=== PATIENT | female | born 1960 | race Asian ===

== ENCOUNTER 2020-03-06 05:36 | Inpatient (IN) | payer BC ==
[2020-03-06] VITALS (59 sets, daily range): BP systolic 90–156; BP diastolic 42–86
[~2020-03-06] VITALS: Ht 160 cm; Wt 55.0 kg
[~2020-03-06 05:36] MED LIST: CYCL10TA7 PO; GABA-290 PO; LOSA50TA41 PO
[2020-03-06] MEDS: DEXT 5%/LACTATED RINGERS 1,000 ML IV SCH ×3 (06:00→18:14)
[2020-03-06] MEDS ORDERED: THROMBIN (BOVINE) 5000 UNITS/VIAL TOP ONE ×2 (06:15→06:16)
[2020-03-06] MEDS ORDERED: LACTATED RINGERS 1,000 ML IV SCH (06:15)
[2020-03-06] MEDS ORDERED: LIDOCAINE HCL/EPINEPHRINE 1%-EPI 1:100,000 20 ML VIAL ONE (06:15)
[2020-03-06] MEDS ORDERED: BACITRACIN 50,000 UNITS/VIAL ONE (06:16)
[2020-03-06] MEDS ORDERED: FENTANYL CITRATE/PF 50MCG/ML 2ML VIAL ONE ×2 (07:07→07:40)
[2020-03-06] MEDS ORDERED: ROCURONIUM BROMIDE 10MG/ML VIAL 5ML IV ONE ×2 (07:07→07:38)
[2020-03-06] MEDS ORDERED: PROPOFOL 200MG/20ML VIAL IV ONE ×2 (07:08→08:10)
[2020-03-06] MEDS ORDERED: NEOSTIGMINE METHYLSULFATE 1MG/ML 10 ML VIAL ONE (07:08)
[2020-03-06] MEDS ORDERED: EPHEDRINE SULFATE 50MG/ML VIAL ONE (07:08)
[2020-03-06] MEDS ORDERED: SODIUM CHLORIDE 0.9% 10ML VIAL ONE (07:08)
[2020-03-06] MEDS ORDERED: MIDAZOLAM HCL 2 MG/2 ML VIAL ONE (07:08)
[2020-03-06] MEDS ORDERED: PHENYLEPHRINE HCL 10 MG/ML 1ML (IV VIAL) IV ONE (07:08)
[2020-03-06] MEDS ORDERED: ONDANSETRON HCL 4MG/2ML INJ ONE (07:08)
[2020-03-06] MEDS ORDERED: CEFAZOLIN SODIUM 1000MG/VIAL ONE (07:08)
[2020-03-06] MEDS ORDERED: GLYCOPYRROLATE 0.2 MG/ML 2ML VIAL ONE (07:08)
[2020-03-06] MEDS ORDERED: METOCLOPRAMIDE HCL 10MG/2ML VIAL ONE (07:08)
[2020-03-06] MEDS ORDERED: SUCCINYLCHOLINE CHLORIDE 200MG/10ML IV ONE (07:08)
[2020-03-06] MEDS ORDERED: DEXAMETHASONE 4MG/ML 1ML VIAL ONE (07:08)
[2020-03-06] MEDS ORDERED: NICARDIPINE 100 MG in SODIUM CHLORIDE 0.9% 60 ML IV PRN (07:30)
[2020-03-06] MEDS ORDERED: MORPHINE SULFATE 4 MG/ML CPJ (NOT FOR IM USE) IV PRN (07:30)
[2020-03-06] MEDS ORDERED: ALBUMIN HUMAN 12.5G/250ML (5%) IV ONE (07:36)
[2020-03-06] MEDS ORDERED: LABETALOL HCL 5MG/ML VIAL 20ML IV ONE (09:12)
[2020-03-06] MEDS ORDERED: ONDANSETRON INJ IV PRN (10:00)
[2020-03-06] MEDS ORDERED: HYDROMORPHONE PCA 10MG/50ML IV PRN (10:00)
[2020-03-06] MEDS ORDERED: NALOXONE INJ IV PRN (10:00)
[2020-03-06] MEDS ORDERED: DIPHENHYDRAMINE INJ IV PRN (10:00)
[2020-03-06] MEDS: DEXAMETHASONE 4MG/ML 1ML VIAL IV SCH ×3 (13:28→23:04)
[2020-03-06] MEDS ORDERED: CEFAZOLIN SODIUM 1000MG/VIAL IV SCH (14:00)
[2020-03-06] MEDS: CEFAZOLIN 1000MG PREMIX 50 ML IV SCH ×2 (14:57→23:02)
[2020-03-06] MEDS: CYCLOBENZAPRINE 10MG TABLET PO PRN (19:19)
[2020-03-07] VITALS (41 sets, daily range): BP systolic 90–151; BP diastolic 39–83
[2020-03-07] MEDS: DEXT 5%/LACTATED RINGERS 1,000 ML IV SCH (03:30)
[2020-03-07 05:56] LABS: BASOPHILS % 0.2 % (0.0-2.0); HEMOGLOBIN. 11.4 g/dL (12.0-16.0); LYMPHOCYTES % 9.8 % (20.0-50.0); MEAN CORPUSCULAR HEMOGLOBIN 27.8 pg (28.0-32.0); MEAN CORPUSCULAR VOLUME 83.4 fL (81.0-99.0); MEAN PLATELET VOLUME 7.7 fl (7.4-10.4); MONOCYTES % 1.5 % (2.0-8.0); NEUTROPHILS % 88.5 % (40.0-76.0); PLATELET 249 x1000/uL (130-400); RED BLOOD CELL COUNT 4.08 mill/uL (4.2-5.4)
[2020-03-07] MEDS: DEXAMETHASONE 4MG/ML 1ML VIAL IV SCH ×2 (06:10→12:58)
[2020-03-07] MEDS: CYCLOBENZAPRINE 10MG TABLET PO PRN ×2 (06:10→21:11)
[2020-03-07] MEDS: CEFAZOLIN 1000MG PREMIX 50 ML IV SCH (06:10)
[2020-03-07 06:25] LABS: CHLORIDE 109 mEq/L (98-107)
[2020-03-07 06:39] LABS: LDL CHOLESTEROL 146 mg/dL (5-100)
[2020-03-07 06:40] LABS: HDL CHOLESTEROL 66 mg/dL (40-59)
[2020-03-07] MEDS: PANTOPRAZOLE SODIUM 40 MG/VIAL IV SCH (09:49)
[2020-03-07] MEDS ORDERED: THROAT LOZENGES-BENZOCAINE/MENTH/CETYLPYRD CL LOZENGES MM PRN (13:00)
[2020-03-08] VITALS: BP 117/70
[2020-03-08 04:00] VITALS: BP 117/75
[2020-03-08 05:18] LABS: BASOPHILS % 0.1 % (0.0-2.0); HEMATOCRIT. 33.8 % (36.0-48.0); HEMOGLOBIN. 11.3 g/dL (12.0-16.0); LYMPHOCYTES % 13.7 % (20.0-50.0); MEAN CORPUSCULAR HEMOGLOBIN 27.8 pg (28.0-32.0); MEAN CORPUSCULAR VOLUME 83.5 fL (81.0-99.0); MEAN PLATELET VOLUME 7.7 fl (7.4-10.4); MONOCYTES % 4.7 % (2.0-8.0); NEUTROPHILS % 81.5 % (40.0-76.0); PLATELET 239 x1000/uL (130-400); RED BLOOD CELL COUNT 4.05 mill/uL (4.2-5.4); RED CELL DISTRIBUTION WIDTH 14.9 % (11.6-14.6)
[2020-03-08 05:25] LABS: CHLORIDE 107 mEq/L (98-107)
[2020-03-08 08:00] VITALS: BP 126/63
[2020-03-08] MEDS: PANTOPRAZOLE SODIUM 40 MG/VIAL IV SCH (08:58)
[2020-03-08] MEDS: CYCLOBENZAPRINE 10MG TABLET PO PRN (11:36)
[2020-03-08 12:00] VITALS: BP 135/76
[2020-03-08 16:00] VITALS: BP 134/73
[2020-03-08] MEDS ORDERED: DOCUSATE SODIUM 100MG CAPSULE PO SCH (17:00)
[2020-03-09] MEDS ORDERED: LOSARTAN POTASSIUM 50 MG TABLET PO SCH (09:00)
== END 2020-03-08 19:10 | disposition home or self-care (01) | DRG 471 ==
LOC: OR 05:36 → 5EST 05:37 → 6EST 03-07 19:08
PROVIDERS: ADMIT Neurological Surgery; ATTEND Neurological Surgery
PROC: 0RG10A0 Fusion of Cervical Vertebral Joint with Interbody Fusion Device, Anterior Approach, Anterior Column, Open Approach (ICD-10-PCS; principal; 2020-03-06)
DX: M48.02 Spinal stenosis, cervical region (principal); G82.50 Quadriplegia, unspecified; M47.12 Other spondylosis with myelopathy, cervical region; M50.10 Cervical disc disorder with radiculopathy, unspecified cervical region; I10 Essential (primary) hypertension; E78.5 Hyperlipidemia, unspecified; Z79.899 Other long term (current) drug therapy; Z98.1 Arthrodesis status
CPT/HCPCS: 36415; 72040; 72141; 76000; 80048; 80053; 80061; 83036; 83735; 85025; 86850; 86900; 88304; 88311; 95863; 95925; 95926; 95928; 95929; 97116; 97162; 97166; 97530; 97535; C1713; C9113; J0330; J0690; J1100; J2250; J2370; J2405; J2704; J2710; J2765; J3010; J3490; J7121; P9041

== ENCOUNTER → 2020-10-12 | Outpatient (CLI) | payer BC | END | disposition home or self-care (01) | LOC: MRI 09:39 | PROVIDERS: ATTEND Neurological Surgery | DX: M43.22 Fusion of spine, cervical region (principal) | CPT/HCPCS: 72141 ==

== ENCOUNTER → 2021-04-04 | Outpatient (CLI) | payer BC | END | disposition home or self-care (01) | LOC: MRI 10:41 | PROVIDERS: ATTEND Neurological Surgery | DX: M48.02 Spinal stenosis, cervical region (principal); M54.2 Cervicalgia; M25.78 Osteophyte, vertebrae | CPT/HCPCS: 72141 ==